=== PATIENT | female | born 1980 | race Caucasian/White ===

== ENCOUNTER → 2021-06-03 | Outpatient (CLI) | payer OTHER | END | disposition home or self-care (01) | LOC: RAH 14:54 | PROVIDERS: ATTEND Internal Medicine | DX: E03.9 Hypothyroidism, unspecified (principal) | CPT/HCPCS: 71046 ==

== ENCOUNTER 2022-05-22 14:00 | Inpatient (IN) | payer OTHER ==
[~2022-05-22] VITALS: Ht 175.3 cm; Wt 103.0 kg
[2022-05-22 15:31] LABS: BASOPHILS % (AUTO) 0.2 % (0.0-5.0); EOSINOPHILS % (AUTO) 0.8 % (0.0-8.0); HEMATOCRIT 38.9 % (36-48); LYMPHOCYTES % (AUTO) 16.3 % (21.0-51.0); MEAN CORPUSCULAR HEMOGLOBIN 27.7 pg (27.0-33.0); MEAN CORPUSCULAR HGB CONC 32.1 g/dL (32.0-36.0); MEAN CORPUSCULAR VOLUME 86.1 fL (79-99); MONOCYTES % (AUTO) 7.6 % (3.0-13.0); NEUTROPHILS % (AUTO) 74.8 % (40.0-77.0); PLATELET COUNT (AUTO) 185 K/uL (130-400); RED BLOOD CELL COUNT(AUTO) 4.52 MIL/uL (4.00-5.50); RED CELL DISTRIBUTION WIDTH 14.8 % (11.0-15.5); WHITE BLOOD COUNT (AUTO) 8.9 K/uL (4.8-10.8)
[2022-05-23] MEDS ORDERED: LACTATED RINGERS 1000ML 1,000 ML IV SCH (06:00)
[2022-05-23] MEDS ORDERED: CEFAZOLIN SODIUM 1 GM VIAL IVP PRN (06:00)
[2022-05-23] MEDS ORDERED: CALDOLOR 800MG+NS 250ML 250 ML IV PRN (06:00)
[2022-05-23] MEDS ORDERED: FENTANYL CITRATE PF 50 MCG/1 ML 2ML VIAL ONE (07:07)
[2022-05-23] MEDS ORDERED: MORPHINE PF 100MG/10ML AMP IV ONE (07:07)
[2022-05-23] MEDS ORDERED: CEFAZOLIN SODIUM 1 GM VIAL ONE (07:11)
[2022-05-23] MEDS ORDERED: CEFAZOLIN SODIUM 3 GM VIAL IV ONE (07:29)
[2022-05-23 07:32] VITALS: BP 114/72
[2022-05-23] MEDS ORDERED: OXYTOCIN 10 USP UNITS/ML ONE ×2 (07:42→07:54)
[2022-05-23] MEDS ORDERED: METHYLERGONOVINE MALEATE 0.2 MG/1 ML ML ONE (07:44)
[2022-05-23] MEDS ORDERED: METHYLERGONOVINE MALEATE 0.2 MG/1 ML ML IM ONE (07:49)
[2022-05-23] MEDS ORDERED: MIDAZOLAM HCL 1 MG/ML 2ML VIAL ONE (07:53)
[2022-05-23] MEDS ORDERED: BISACODYL 10 MG SUPP.RECT RC PRN (09:00)
[2022-05-23] MEDS: DOCUSATE SODIUM 100 MG CAP PO SCH ×2 (09:00→20:20)
[2022-05-23] MEDS ORDERED: MEPERIDINE-PF 75 MG/ML SYG IM PRN (09:00)
[2022-05-23] MEDS: IBUPROFEN 800 MG TAB PO SCH ×2 (09:00→17:00)
[2022-05-23] MEDS ORDERED: LANOLIN 30GM OINTMENT TP PRN (09:00)
[2022-05-23] MEDS ORDERED: DIPH,PERTUSS(ACELL),TET VAC/PF 0.5 ML VIAL IM SCH (09:00)
[2022-05-23] MEDS ORDERED: 0.9%NACL 10ML VIAL IVP PRN (09:00)
[2022-05-23] MEDS ORDERED: ACETAMINOPHEN WITH CODEINE 1 TAB TAB PO PRN (09:00)
[2022-05-23] MEDS ORDERED: OXYTOCIN-LR 20 UNITS/1000 ML 1,000 ML IV PRN (09:00)
[2022-05-23] MEDS ORDERED: DIPHENHYDRAMINE HCL 25 MG CAPSULE PO PRN (09:00)
[2022-05-23] MEDS ORDERED: MEASLES/MUMPS/RUBELLA VACCINE, LIVE 0.5 ML/VIAL SQ SCH (09:00)
[2022-05-23] MEDS ORDERED: ACETAMINOPHEN 500 MG TABLET PO PRN (09:00)
[2022-05-23] MEDS ORDERED: DEXTROSE 5 %-0.45 % NACL 1,000 ML IV PRN (09:00)
[2022-05-23] MEDS ORDERED: PROMETHAZINE HCL 25 MG/ML 1ML AMPULE IM PRN (09:00)
[2022-05-23] MEDS ORDERED: DiphenhydrAMINE HCL 50 MG/ML VIAL IVP PRN (09:30)
[2022-05-23] MEDS ORDERED: EPHEDRINE SULFATE 50 MG/ML AMPULE IVP PRN (09:30)
[2022-05-23] MEDS ORDERED: NALOXONE HCL 0.4 MG/1 ML ML IVP PRN (09:30)
[2022-05-23] MEDS ORDERED: MEPERIDINE-PF 25 MG/ML SYG IV PRN (09:30)
[2022-05-23 10:21] VITALS: BP 112/64
[2022-05-23] MEDS: LORATADINE 10 MG TABLET PO PRN (10:40)
[2022-05-23] MEDS ORDERED: BUPR-93 PO (11:33)
[2022-05-23] MEDS ORDERED: PREN-154 PO (11:33)
[2022-05-23 11:48] VITALS: BP 107/66
[2022-05-23] MEDS: LIDOCAINE 5% TOPICAL PATCH TP SCH (12:38)
[2022-05-23] MEDS: HYDROCODONE/ACETAMINOPHEN 5/325 MG TAB PO PRN ×2 (12:38→20:22)
[2022-05-23 16:28] VITALS: BP 111/72
[2022-05-23] MEDS: CALDOLOR 800MG+NS 250ML 250 ML IV SCH (17:08)
[2022-05-23] MEDS: ONDANSETRON 4MG INJ IVP PRN (18:46)
[2022-05-23 19:14] VITALS: BP 102/58
[2022-05-23] MEDS: SIMETHICONE 80 MG TAB.CHEW PO PRN (20:20)
[2022-05-23 22:45] VITALS: BP 104/53
[2022-05-24] MEDS: CALDOLOR 800MG+NS 250ML 250 ML IV SCH (00:42)
[2022-05-24 02:49] VITALS: BP 92/55
[2022-05-24] MEDS: ONDANSETRON 4MG INJ IVP PRN (04:10)
[2022-05-24] MEDS ORDERED: CEFAZOLIN SODIUM 1 GM VIAL IVP PRN (06:00)
[2022-05-24 07:23] VITALS: BP 102/62
[2022-05-24] MEDS: SIMETHICONE 80 MG TAB.CHEW PO PRN ×2 (08:58→20:48)
[2022-05-24] MEDS: DOCUSATE SODIUM 100 MG CAP PO SCH ×2 (08:58→20:49)
[2022-05-24] MEDS: IBUPROFEN 800 MG TAB PO SCH ×2 (09:18→17:00)
[2022-05-24] MEDS: HYDROCODONE/ACETAMINOPHEN 5/325 MG TAB PO PRN ×2 (10:13→20:55)
[2022-05-24] MEDS: LORATADINE 10 MG TABLET PO PRN (10:13)
[2022-05-24 12:10] VITALS: BP 109/59
[2022-05-24] MEDS: LIDOCAINE 5% TOPICAL PATCH TP SCH (12:47)
[2022-05-24 16:47] VITALS: BP 121/68
[2022-05-24 19:08] VITALS: BP 115/57
[2022-05-24 23:11] VITALS: BP 109/59
[2022-05-25] MEDS: IBUPROFEN 800 MG TAB PO SCH ×2 (01:08→09:11)
[2022-05-25 03:52] VITALS: BP 107/60
[2022-05-25 07:35] VITALS: BP 114/51
[2022-05-25] MEDS: DOCUSATE SODIUM 100 MG CAP PO SCH (09:10)
[2022-05-25] MEDS: SIMETHICONE 80 MG TAB.CHEW PO PRN (09:11)
[2022-05-25] MEDS: LIDOCAINE 5% TOPICAL PATCH TP SCH (09:43)
== END 2022-05-25 10:05 | disposition home or self-care (01) | DRG 788 ==
LOC: LDH 05-23 05:40 → WSH 05-23 10:20
PROVIDERS: ADMIT Obstetrics & Gynecology; ATTEND Obstetrics & Gynecology
PROC: 10D00Z1 Extraction of Products of Conception, Low, Open Approach (ICD-10-PCS; principal; 2022-05-23 07:00)
DX: O34.211 Maternal care for low transverse scar from previous cesarean delivery (principal); O62.2 Other uterine inertia; Z20.822 Contact with and (suspected) exposure to COVID-19; Z3A.38 38 weeks gestation of pregnancy; Z37.0 Single live birth
CPT/HCPCS: 36415; 59510; 85025; 86850; 86900; 86901; 87426; 90715; A4344; G0378; J0690; J1741; J2210; J2250; J2274; J2405; J2590; J3010; J7120; Q0163

== ENCOUNTER → 2024-08-08 | Outpatient (CLI) | payer OTHER ==
[~2024-08-08] MED LIST: BUPR-93 PO; PREN-154 PO
[2024-08-08 08:52] LABS: INR <= 0.93 (0.85-1.15); PROTHROMBIN TIME 10.5 SEC (9.6-11.6)
[2024-08-08 08:54] LABS: PARTIAL THROMBOPLASTIN TIME 25.2 SEC (26.3-35.5)
--- NOTE | 2024-08-08 09:25 | NUR ---
U/S GD LT THYROID NODULE FNA PERFORMED BY DR Brayan DIETRICH. TOLERATED PROCEDURE. PUNCTURE SITE TO LT NECK. X4 THYROID NODULE ASPIRATIONS COLLECTED BY SALLIE FROM LAB AT BEDSIDE. END OF PROCEDURE AT 0905. DRESSING APPLIED. NO BLEEDING NOTED. DISCHARGE INSTRUCTIONS GIVEN. VERBALIZED UNDERSTANDING. DENIES PAIN. A&O. DISCHARGE VIA AMBULATION.
--- NOTE | 2024-08-08 09:33 | HMCIMG ---
US FINE NEEDLE ASP IR HISTORY: Left thyroid nodule COMPARISON: None TECHNIQUE: Informed consent was obtained. Risks and benefits were explained to the patient. A timeout was performed. Patient was prepped and draped in a sterile fashion. Local anesthetics was given as required. Under ultrasound guidance, left thyroid nodule was localized. Ultrasound guidance needle aspiration was performed. 4 passes were made. FINDINGS: Patient tolerated procedure without complication. Patient left the department in good condition. IMPRESSION: 1. Uncomplicated ultrasound guidance needle aspiration.
== END | disposition home or self-care (01) ==
LOC: RAH 08:01
PROVIDERS: ATTEND Internal Medicine
DX: E04.1 Nontoxic single thyroid nodule (principal); G47.00 Insomnia, unspecified; E03.9 Hypothyroidism, unspecified; F90.0 Attention-deficit hyperactivity disorder, predominantly inattentive type; Z80.3 Family history of malignant neoplasm of breast; Z79.01 Long term (current) use of anticoagulants; Z88.5 Allergy status to narcotic agent
CPT/HCPCS: 10005; 36415; 76942; 85610; 85730; 88173; 88305